=== PATIENT | male | born 1980 | race Caucasian/White ===

== ENCOUNTER → 2017-10-12 08:11 | Outpatient (REF) | payer MEDICAID, SELFPAY ==
[2017-10-12 13:35] LABS: Cholesterol 170 mg/dL (50-200); Glucose 100 mg/dL (70-100); HDL Cholesterol 32 mg/dL (40-60); LDL CHOLESTEROL 127 mg/dL (<100); Triglyceride 108 mg/dL (30-150)
== END ==
LOC: NCHCN 08:11
PROVIDERS: PCP Internal Medicine; Visit Provider Nurse Practitioner Family
DX: E78.70 Disorder of bile acid and cholesterol metabolism, unspecified (principal); Z13.1 Encounter for screening for diabetes mellitus
CPT/HCPCS: 80061; 82947; 83721

== ENCOUNTER 2018-10-13 06:11 | Emergency (ER) | payer MEDICAID, SELFPAY ==
[2018-10-13 06:19] VITALS: BP 120/72; PULSE 82; RESP 18; TEMP 36.7; O2SAT 96
--- NOTE | 2018-10-13 07:13 | W.ED.GENAD ---
Discharge Plan Disposition Patient Disposition: HOME Condition: Good Discharge Details Chief Complaint: Orthopedic Clinical Impression: Musculoskeletal pain, Trapezius muscle spasm Primary Care Provider: Alexis Levi ED Provider: Rebecca Lyle Home Meds and New Rx's Prescriptions: New cyclobenzaprine 10 mg tablet 10 mg PO TID PRN (Reason: muscle spasm) Qty: 10 RF: 0 Discharge Instructions Instructions: Muscle Spasm (ED), Back Pain (ED) Additional Instructions: Encourage hydration. Encourage gentle stretching, frequent ambulation. Tylenol and/or Ibuporfen as needed for discomfort. May use the Flexeril as prescribed, this may cause you to be drowsy, do not drive while taking this medication. topical anesthetics such as Salonpas or Lidoderm patches. If you develop fevers/chills, increased pain, chest pain, shortness of breath, difficulty breathing or other new/worsening symptoms please seek care urgently once again. If pain persists over the next week please follow up with primary care. Referrals: Alexis Levi MD [Primary Care Provider] - Medical Decision Making Patient is a 38-year-old male presents today with chief complaint of left scapular pain. He reports he woke with this pain this morning. Is taken 1 approximately 6 to this discomfort. Feels that the pain has been subsiding since being here. He denies any known trauma. States that he was active yesterday, is working on a day camp. Denies any fevers or chills. Denies any chest pain or shortness of breath. Denies any history of cardiac or pulmonary disease, no history of family cardiac disease. No recent travel. Patient is a non-smoker. He otherwise in good health. On exam, patient has tenderness palpation over the trapezius on the left side. Rotation to the left neck is limited compared to the rotation of the right side. He reports the pain that he initially been experiencing scapulas now primarily into the superior aspect of the trapezius rating down towards the shoulder. He is full range of motion of the shoulder. Normal neurovascular exam. Lungs are clear in all vargas. No pain with AP or lateral compression of the chest. No notable deformity. No rash. Pain is not elicited with palpation over the midline, no pain over the scapula. Pain came on upon awakening this morning after a particularly busy day yesterday. Advised this is most consistent with muscular spasm. I encouraged gentle range of motion frequent ambulation. Advised heat to help with discomfort. This patient is having a notable spasm, will prescribe Flexeril. He advised that he is going to hold off on taking this now and see how Lidoderm patch and Tylenol, augmented to his prior anti-inflammatory, will work for his discomfort. He was given usage instructions. We will follow-up with primary care if not improving in the next week. He was given strict return guidelines. All his questions and concerns were addressed and he is in agreement this plan HPI General Mode of arrival: ambulatory. Date/Time Provider Initiated Documentation: 10/13/18 07:13. Limitations to Documentation: no limitations. Information obtained by: patient and RN notes reviewed. History of Present Illness 38 year old M presents to the emergency department with the chief complaint of left scapula pain, described as moderate, with intensity rated at 7. Quality is described as aching, and is localized to the back. Patient reports no radiation. Patient started experiencing this hour(s) (1) and it has been constant. Immobilization improves symptom(s), Movement worsens symptoms . Patient notes no other symptoms.; denies confusion, chest pain, cough, diaphoresis, fever/chills, headaches, loss of appetite, nausea/vomiting, rash, shortness of breath and weakness. Patient did receive the following treatments prior to arrival, NSAID Related Data Home Medications Medication Instructions Recorded Confirmed cyclobenzaprine 10 mg PO TID PRN #10 tab 10/13/18 Previous Rx's Medication Instructions Recorded cyclobenzaprine 10 mg PO TID PRN #10 tab 10/13/18 Allergies Allergy/AdvReac Type Severity Reaction Status Date / Time No Known Allergies Allergy Unverified 10/13/18 06:26 General Stated Complaint: Orthopedic FABIOLA: 4 Review of Systems Constitutional Reports as per HPI, Denies chills, Denies fever(s), Denies headache(s) and Denies weakness ENT Denies headache(s) and Reports neck pain (stiff in neck) Cardiovascular Reports as per HPI, Denies dyspnea and Denies dyspnea on exertion Respiratory Reports as per HPI, Denies cough, Denies hemoptysis, Denies dyspnea, Denies dyspnea on exertion and Denies wheezing Gastrointestinal Reports as per HPI, Denies abdominal pain, Denies nausea and Denies vomiting Musculoskeletal Reports as per HPI, Denies abnormal gait, Reports back pain, Reports myalgias, Denies arthralgias, Reports neck pain (stiff in neck), Denies radiating pain into limb, Reports stiffness and Denies tingling Integumentary/Breasts Reports as per HPI, Denies rash and Denies wounds Neurologic Reports as per HPI, Denies abnormal gait, Denies headache(s), Denies tingling, Denies paresthesias and Denies weakness Allergic/Immunologic Denies wheezing [facility] Social History Smoking/Tobacco Use Status: Never Alcohol Intake: never Drug use: Never Do you feel safe at home: Yes Do you feel safe in your relationship?: Yes Exam Const General: cooperative, healthy appearing, comfortable, no acute distress, well developed and well groomed Nutritional Appearance: average body habitus and well nourished Orientation: alert and awake Neck Neck: normal visual inspection, limited ROM (limited rotation to the left), no lymphadenopathy, no meningeal signs, trachea midline and supple Chest Chest: normal inspection of the chest, normal palpation of entire chest wall, no crepitus and no localized rib tenderness Resp Effort & Inspection: normal respiratory effort, able to speak in complete sentences and no respiratory distress Auscultation: clear to auscultation bilaterally, no rales, no rhonchi and no wheezes Cardio Rate: regular rate Rhythm: regular rhythm Heart Sounds: S1 normal and S2 normal GI Inspection: normal to inspection Palpation: soft, no guarding and nontender Back/Spine/Pelvis Back: No no CVA tenderness Cervical Spine: normal cervical lordosis, No cervical ROM normal (lmiited with left rotation as above), cervical muscular tenderness (along left side toward left shoulder), pain with cervical ROM, cervical spasm (left trapezius), No cervical spinal tenderness and No step off deformity Thoracic/Lumbar Spine: thoracic and lumbar spine normal to inspection, No surgical scar(s) present, thoraco-lumbar ROM normal, No paraspinal tenderness, No thoraco-lumbar spasm, No thoracic spinal tenderness and No lumbar spinal tenderness Skin General skin exam: no rashes or lesions noted Lesions: no lesions Rashes: no rashes Trauma: no lacerations or abrasions Neuro General: alert and awake Cognition: normal cognition Speech: speech normal Gait: normal gait Motor: muscle tone normal throughout Sensory Exam: no sensory deficits noted Extrem General: normal to inspection, full ROM, normal capillary refill and no pedal edema Left upper extremity: normal to inspection, full ROM, normal capillary refill and no joint enlargement; no edema Psych Appearance: grossly normal and well kempt Mental Status: mental status grossly normal Speech and Movement: speech and movement normal Course Vital Signs Temperature 36.7 C 10/13/18 06:19 Pulse 82 10/13/18 06:19 Respiratory Rate 18 10/13/18 06:19 Blood Pressure 120/72 10/13/18 06:19 Pulse Oximetry 96 10/13/18 06:19 Temperature 36.7 C 10/13/18 06:19 Temperature Source Tympanic 10/13/18 06:19 Pulse 82 10/13/18 06:19 Respiratory Rate 18 10/13/18 06:19 Respiratory Effort Non-Labored 10/13/18 06:27 Blood Pressure 120/72 10/13/18 06:19 Pulse Oximetry 96 10/13/18 06:19 Oxygen Delivery Method Room Air 10/13/18 06:19 Oxygen Flow Rate 0 10/13/18 06:19 Pain Level 7 10/13/18 06:19
[2018-10-13] MEDS: Acetaminophen 500 MG TAB 1000 MG PO (08:07)
== END 2018-10-13 08:10 | disposition home or self-care (01) ==
PROVIDERS: Emergency Provider Physician Assistant; PCP Nurse Practitioner Family
DX: M17.12 Unilateral primary osteoarthritis, left knee (principal); M62.838 Other muscle spasm
CPT/HCPCS: 99283